=== PATIENT | female | born 1970 | race African-American/Black ===

== ENCOUNTER 2021-01-20 09:09 | Emergency (ER) | payer OTHER ==
[~2021-01-20] VITALS: Ht 162.6 cm; Wt 114.3 kg
[~2021-01-20 09:09] MED LIST: ABILIFY5 MG PO; ARNUITY ELLIP200 MCG INH; ASMANEX HFA13 G1 INH; BACLOFEN 20MG T20 MG PO; BUSPAR5 MG PO; CITRACAL + D M1 EACH PO; COLACE100 MG PO; CYANOCOBAL1000 MCG/1 IM; IMITREX100 MG PO; NORVASC5 MG PO; PROTONIX 40MG T40 MG PO; TOPAMAX25 MG PO; TRAZODONE 100M100 MG PO; VITAMIN D5000 UNIT PO; XANAX0.5 MG PO; ZOCOR20 MG PO; ZOFRAN4 MG PO; ZOLOFT100 MG PO; ZYRTEC10 MG PO
[2021-01-20 09:32] LABS: BASOPHIL 0.6 % (0-2); HCT 44.9 % (37.0-47.0); HGB 14.2 g/dl (12.5-16.0); LYMPHOCYTE 20.1 % (15-48); MCH 27.4 pg (25.0-31.0); MCHC 31.6 g/dL (32.0-36.0); MCV 86.5 fL (78.0-100.0); MONOCYTE 6.4 % (0-12); MPV 10.3 fL (6.0-9.5); NEUTROPHIL 70.7 % (41-80); NRBC 0; PLT 327 K/uL (150-400); RBC 5.19 M/uL (4.20-5.40); RDW 13.9 % (11.5-14.0); WBC 10.8 K/uL (4.0-10.5)
[2021-01-20 09:58] LABS: ALBUMIN 3.8 g/dL (3.4-5.0); BILIRUBIN - TOTAL 0.4 mg/dL (0.2-1.0); BUN/CREAT RATIO (CALC) 14.7 RATIO; CREATININE 1.09 mg/dL (0.51-0.95); GLOBULIN (CALCULATION) 4.1 g/dL; POTASSIUM 3.8 mmol/L (3.5-5.1); TOTAL PROTEIN 7.9 g/dL (6.4-8.2)
[2021-01-20 11:59] LABS: BILIRUBIN 1+ mg/dL (NEGATIVE); BLOOD NEGATIVE Ery/uL (NEGATIVE); CLARITY CLEAR (CLEAR); COLOR YELLOW (YELLOW); GLUCOSE (U) NORMAL (NORMAL); LEUKOCYTES NEGATIVE Leu/uL (NEGATIVE); NITRITE NEGATIVE (NEGATIVE); PROTEIN TRACE (LOW) mg/dL (NEGATIVE); SPECIFIC GRAVITY 1.025 (1.001-1.030)
[2021-01-20 12:12] LABS: BACTERIA 1+
[2021-01-20 12:13] LABS: CALCIUM OXALATE CRYSTALS TRACE; SQUAMOUS EPITHELIAL CELLS 20-50
[2021-01-20] MEDS ORDERED: PERCOCET 5-3251 EACH PO (14:00)
[2021-01-20] MEDS ORDERED: ONDANSETRON ODT4 MG PO (14:03)
[2021-01-20] MEDS ORDERED: PHENERGAN25 M1 PO (14:03)
== END 2021-01-20 14:15 | disposition home or self-care (01) ==
LOC: FER 09:09
PROVIDERS: Internal Medicine
DX: K82.8 Other specified diseases of gallbladder (principal); N17.9 Acute kidney failure, unspecified; I10 Essential (primary) hypertension; R00.0 Tachycardia, unspecified; Z20.822 Contact with and (suspected) exposure to COVID-19; Z90.710 Acquired absence of both cervix and uterus; Z98.84 Bariatric surgery status; Z88.5 Allergy status to narcotic agent; Z88.6 Allergy status to analgesic agent
CPT/HCPCS: 36415; 80053; 81001; 83690; 84484; 85025; 93005; J2270; J2405; J7120; U0002